=== PATIENT | female | born 1980 | race Caucasian/White ===

== ENCOUNTER → 2017-08-10 | Outpatient (CLI) | payer BC ==
[~2017-08-10] MED LIST: BETH25TA GT; DCS100C PO; IBP800T PO; OXYC1TAB12 PO
--- NOTE | 2017-08-10 21:07 | Diagnostic Imaging Report ---
INDICATION: Routine screening. COMPARISON: Prior mammogram from 11/26/2014 and right mammogram from 09/21/2015. EXAMINATION: Bilateral 3D digital tomographic views with breast implants were obtained with [employer] and reviewed on a [employer] workstation. In addition, CAD (computer aided detection) was utilized. FINDINGS: Bilateral sub-pectoral breast implants are noted. Implant contours appear to be fairly smooth. Scattered fibroglandular densities in both breasts are seen. Asymmetric density in the superior right breast on the MLO view appears less prominent on today's exam. No new abnormality is detected. IMPRESSION: BI-RADS category 2 Stable bilateral mammograms. No mammographic features suspicious for malignancy are identified. ACR BI-RADS Category 2: Benign findings. Result letter will be mailed to the patient. Note: At least 10% of breast cancer is not imaged by mammography. Dictated by: Dictated on workstation # [id number]
== END ==
LOC: RAD 11:02
PROVIDERS: ATTEND Obstetrics & Gynecology
DX: Z12.31 Encounter for screening mammogram for malignant neoplasm of breast (principal)
CPT/HCPCS: 77067

== ENCOUNTER → 2020-06-04 | Outpatient (CLI) | payer BC ==
--- NOTE | 2020-06-04 11:21 | Diagnostic Imaging Report ---
INDICATION: Routine screening. Comparison is made with prior mammogram 08/10/2017 and 11/26/2014. 2-D and 3-D bilateral screening mammography was performed with CAD. Bilateral subpectoral breast implants are again noted. Implant contours are smooth. Mild scattered fibroglandular densities in both breasts are noted. Parenchymal pattern is stable. No mass or malignant appearing microcalcifications are seen. Axillae are unremarkable. IMPRESSION: BI-RADS Category 1 No mammographic features suspicious for malignancy are identified. ACR BI-RADS Category 1: Negative. Result letter will be mailed to the patient. Note: At least 10% of breast cancer is not imaged by mammography. Dictated by: Dictated on workstation # [id number]
== END ==
LOC: RAD 10:15
PROVIDERS: ATTEND Obstetrics & Gynecology
DX: Z12.31 Encounter for screening mammogram for malignant neoplasm of breast (principal)
CPT/HCPCS: 77063; 77067

== ENCOUNTER 2020-10-19 01:34 | Emergency (ER) | payer BC ==
--- NOTE | 2020-10-19 01:42 | ED Fever ---
History of Present Illness General Stated Complaint: FEVEFR History of Present Illness Date Seen by Provider: Oct 19, 2020 Time Seen by Provider: 01:42 Initial Comments 40-year-old female presents with fever. Patient reports that the fever started on Monday afternoon on 10/17/2020. Patient reports that fever got as high as 103. That night she took some ibuprofen and was having difficulty for the fever to break. That she "passed out due to the fever and then the fever broke" that during the day on 10/18/2020 she felt better and did not have much fever. Then during the night it returned. Patient has had some headache, diarrhea, some pain in her back. She denies any cough, shortness of breath, sore throat. Allergies and Home Medications Allergies Coded Allergies: amoxicillin (Unverified Allergy, Unknown, RASH, 10/14/14) Home Medications Bethanechol Chl 25 Mg Tab, 25 MG GT QID Prescribed by: JEFFREY LANDIS on 10/25/14 1401 Docusate Sodium 100 Mg Cap, 100 MG PO BID Prescribed by: FANNY CHAMPION on 10/25/14 0957 Ibuprofen 800 Mg Tab, 800 MG PO Q6HR Prescribed by: FANNY CHAMPION on 10/25/14 0957 Oxycodone Hcl/Acetaminophen 1 Tab Tablet, 1-2 TAB PO Q4H PRN for PAIN Prescribed by: FANNY CHAMPION on 10/25/14 0957 Patient Home Medication List Home Medication List Reviewed: Yes Review of Systems Review of Systems Constitutional: No chills, No fever Respiratory: No cough, No short of breath Cardiovascular: No chest pain, No palpitations Gastrointestinal: No abdominal pain; diarrhea Musculoskeletal: back pain Skin: No rash Psychiatric/Neurological: Headache Hematologic/Lymphatic: No Symptoms Reported Immunological/Allergic: no symptoms reported Past Ogwbeei-Xpouwl-Mnhthl Hx Past Medical History Reproductive Disorders: Yes Family Medical History Cardiovascular disease 19 FATHER GRANDPARENTS Colon cancer GRANDPARENTS Diabetes mellitus 19 FATHER Hypertension 19 FATHER Thyroid disease 19 MOTHER No Family History of: AIDS Abdominal aortic aneurysm Alcoholism Alzheimer's disease Arthritis Asthma Cataracts Dementia Drug abuse Glaucoma Kidney disease Myocardial infarction Parkinson's disease Prostate cancer Psychosocial problem Respiratory disorder Seizure disorder Severe allergy Tuberculosis Physical Exam Vital Signs - First Documented 10/19/20 01:42 Temp 38.8 Pulse 129 Resp 18 B/P (MAP) 112/73 (86) Pulse Ox 96 O2 Delivery Room Air Capillary Refill : Height: 5'4.50" Weight: 144lbs. oz. 65.258216xw; BMI Method: General Appearance: no apparent distress, other (Febrile) Eyes: Bilateral Eye PERRL Neck: full range of motion, supple, other (No meningeal signs) Respiratory: lungs clear, normal breath sounds, no respiratory distress Cardiovascular: normal peripheral pulses, tachycardia Gastrointestinal: non tender, soft Extremities: normal capillary refill Neurologic/Psychiatric: alert, normal mood/affect, oriented x 3 Skin: normal color, warm/dry Focused Exam Lactate Level 10/19/20 01:50: Lactic Acid Level 0.77 Lactic Acid Level Laboratory Tests Test 10/19/20 01:50 Lactic Acid Level 0.77 MMOL/L (0.50-2.00) Progress/Results/Core Measures Suspected Sepsis SIRS Temperature: Pulse: Respiratory Rate: Laboratory Tests 10/19/20 01:50: White Blood Count 11.2H Blood Pressure / Mean: 10/19/20 01:50: Lactic Acid Level 0.77 Laboratory Tests 10/19/20 01:50: Creatinine 0.73, Platelet Count 222, Total Bilirubin 0.5 10/19/20 01:51: INR Comment 0.9 Results/Orders Lab Results Laboratory Tests Test 10/19/20 01:50 10/19/20 01:51 10/19/20 02:00 10/19/20 04:05 Range/Units White Blood Count 11.2 H 4.3-11.0 10^3/uL Red Blood Count 4.49 4.35-5.85 10^6/uL Hemoglobin 14.1 11.5-16.0 G/DL Hematocrit 41 35-52 % Mean Corpuscular Volume 92 80-99 FL Mean Corpuscular Hemoglobin 31 25-34 PG Mean Corpuscular Hemoglobin Concent 34 32-36 G/DL Red Cell Distribution Width 12.1 10.0-14.5 % Platelet Count 222 130-400 10^3/uL Mean Platelet Volume 11.1 H 7.4-10.4 FL Neutrophils (%) (Auto) 81 H 42-75 % Lymphocytes (%) (Auto) 10 L 12-44 % Monocytes (%) (Auto) 8 0-12 % Eosinophils (%) (Auto) 1 0-10 % Basophils (%) (Auto) 0 0-10 % Neutrophils # (Auto) 9.1 H 1.8-7.8 X 10^3 Lymphocytes # (Auto) 1.1 1.0-4.0 X 10^3 Monocytes # (Auto) 0.9 0.0-1.0 X 10^3 Eosinophils # (Auto) 0.1 0.0-0.3 10^3/uL Basophils # (Auto) 0.0 0.0-0.1 10^3/uL Sodium Level 138 135-145 MMOL/L Potassium Level 3.8 3.6-5.0 MMOL/L Chloride Level 107 98-107 MMOL/L Carbon Dioxide Level 21 21-32 MMOL/L Anion Gap 10 5-14 MMOL/L Blood Urea Nitrogen 10 7-18 MG/DL Creatinine 0.73 0.60-1.30 MG/DL Estimat Glomerular Filtration Rate > 60 BUN/Creatinine Ratio 14 Glucose Level 118 H 70-105 MG/DL Lactic Acid Level 0.77 0.50-2.00 MMOL/L Calcium Level 8.9 8.5-10.1 MG/DL Corrected Calcium 8.8 8.5-10.1 MG/DL Total Bilirubin 0.5 0.1-1.0 MG/DL Aspartate Amino Transf (AST/SGOT) 18 5-34 U/L Alanine Aminotransferase (ALT/SGPT) 18 0-55 U/L Alkaline Phosphatase 57 40-136 U/L C-Reactive Protein 3.05 H <0.50 MG/DL Total Protein 7.1 6.4-8.2 GM/DL Albumin 4.1 3.2-4.5 GM/DL Procalcitonin 0.07 <0.10 NG/ML Prothrombin Time 12.8 12.2-14.7 SEC INR Comment 0.9 0.8-1.4 Activated Partial Thromboplast Time 26 24-35 SEC Influenza Type A (RT-PCR) Not Detected Not Detecte Influenza Type B (RT-PCR) Not Detected Not Detecte SARS-CoV-2 RNA (RT-PCR) Not Detected Not Detecte Urine Color YELLOW Urine Clarity CLEAR Urine pH 6.0 5-9 Urine Specific [place] 1.015 L 1.016-1.022 Urine Protein NEGATIVE NEGATIVE Urine Glucose (UA) NEGATIVE NEGATIVE Urine Ketones NEGATIVE NEGATIVE Urine Nitrite NEGATIVE NEGATIVE Urine Bilirubin NEGATIVE NEGATIVE Urine Urobilinogen 0.2 < = 1.0 MG/DL Urine Leukocyte Esterase NEGATIVE NEGATIVE Urine RBC (Auto) NEGATIVE NEGATIVE Urine RBC NONE /HPF Urine WBC 2-5 /HPF Urine Squamous Epithelial Cells 2-5 /HPF Urine Crystals NONE /LPF Urine Bacteria FEW H /HPF Urine Casts PRESENT /LPF Urine Hyaline Casts 0-2 H /LPF Urine Coarse Granular Casts 0-2 H /LPF Urine Mucus MODERATE H /LPF Urine Culture Indicated NO Micro Results Microbiology 10/19/20 Influenza Types A,B Antigen (FITZ) - Final, Complete My Orders Orders - BAPTISTE,LETICIA L DO Cbc With Automated Diff (10/19/20 01:43) Comprehensive Metabolic Panel (10/19/20 01:43) Blood Culture (10/19/20 01:43) Urinalysis (10/19/20 01:43) Urine Culture (10/19/20 01:43) Protime With Inr (10/19/20 01:43) Partial Thromboplastin Time (10/19/20 01:43) Chest 1 View Ap/Pa Only (10/19/20 01:43) Ed Iv/Invasive Line Start (10/19/20 01:43) Vital Signs Adult Sepsis Patie Q15M (10/19/20 01:43) Ondansetron Injection (Zofran Injectio (10/19/20 01:45) Lactic Acid Analyzer (10/19/20 01:43) Influenza A And B Antigens (10/19/20 01:43) Ns Iv 1000 Ml (Sodium Chloride 0.9%) (10/19/20 01:45) Covid 19 Inhouse Test (10/19/20 01:43) Influenza A And B By Pcr (10/19/20 01:43) Crp Fs (10/19/20 01:54) Procalcitonin (Pct) (10/19/20 01:50) Vital Signs/I&O 10/19/20 10/19/20 01:42 05:21 Temp 38.8 Pulse 129 104 Resp 18 18 B/P (MAP) 112/73 (86) 108/69 (86) Pulse Ox 96 97 O2 Delivery Room Air Room Air Capillary Refill : Progress Note : Progress Note Patient with negative influenza, coronavirus, patient with negative UA and chest x-ray. Patient symptoms are very consistent with a other viral syndrome. Patient rested comfortably throughout her stay in the ER. Discussed with patient the need for supportive care. If her symptoms or not improved in 5 or 6 days she should follow with her primary care provider for further evaluation. Return the ER as Diagnostic Imaging Diagonstic Imaging: Xray Plain Films/CT/US/NM/MRI: chest Comments No infiltrate noted Reviewed: Reviewed by Me Departure Impression Primary Impression: Acute viral syndrome Disposition: HOME, SELF-CARE Condition: Stable Departure-Patient Inst. Referrals: NO,LOCAL PHYSICIAN (PCP/Family) Primary Care Physician Patient Instructions: Viral Syndrome (DC) Add. Discharge Instructions: Drink plenty of fluid Tylenol ibuprofen as needed for fever Follow-up with your primary care provider in 4 to 5 days if symptoms have not resolved LETICIA BAPTISTE DO Oct 19, 2020 01:42
[2020-10-19] MEDS ORDERED: NS IV 1000 ML 1,000 ML IV SCH (01:45)
[2020-10-19] MEDS ORDERED: ONDANSETRON 4 MG/2 ML (SDV) Z0FRAN IV PRN (01:45)
[2020-10-19 02:00] LABS: HEMATOCRIT 41 % (35-52); HEMOGLOBIN 14.1 G/DL (11.5-16.0); MEAN CORPUSCULAR HEMOGLOBIN 31 PG (25-34); MEAN CORPUSCULAR HGB CONC 34 G/DL (32-36); MEAN CORPUSCULAR VOLUME 92 FL (80-99); PLATELET COUNT 222 10^3/uL (130-400); WHITE BLOOD COUNT 11.2 10^3/uL (4.3-11.0)
[2020-10-19 02:01] LABS: BASOPHILS % (AUTO) 0 % (0-10); EOSINOPHILS # (AUTO) 0.1 10^3/uL (0.0-0.3); EOSINOPHILS % (AUTO) 1 % (0-10); LYMPHOCYTES # (AUTO) 1.1 X 10^3 (1.0-4.0); LYMPHOCYTES % (AUTO) 10 % (12-44); MEAN PLATELET VOLUME 11.1 FL (7.4-10.4); MONOCYTES # (AUTO) 0.9 X 10^3 (0.0-1.0); MONOCYTES % (AUTO) 8 % (0-12); NEUTROPHILS # (AUTO) 9.1 X 10^3 (1.8-7.8); NEUTROPHILS % (AUTO) 81 % (42-75)
[2020-10-19 02:22] LABS: ALANINE AMINOTRANSFERASE 18 U/L (0-55); ALBUMIN 4.1 GM/DL (3.2-4.5); ALKALINE PHOSPHATASE 57 U/L (40-136); BILIRUBIN,TOTAL 0.5 MG/DL (0.1-1.0); BUN/CREATININE RATIO 14; CALCIUM 8.9 MG/DL (8.5-10.1); CARBON DIOXIDE 21 MMOL/L (21-32); CHLORIDE 107 MMOL/L (98-107); CREATININE SERUM 0.73 MG/DL (0.60-1.30); GFR ESTIMATED > 60; GLUCOSE 118 MG/DL (70-105); POTASSIUM 3.8 MMOL/L (3.6-5.0); SODIUM 138 MMOL/L (135-145); TOTAL PROTEIN 7.1 GM/DL (6.4-8.2)
[2020-10-19 04:16] LABS: BILIRUBIN,URINE NEGATIVE (NEGATIVE); CLARITY,URINE CLEAR; COLOR,URINE YELLOW; GLUCOSE, URINE (UA) NEGATIVE (NEGATIVE); KETONES,URINE NEGATIVE (NEGATIVE); LEUKOCYTE ESTERASE ,URINE NEGATIVE (NEGATIVE); NITRITE,URINE NEGATIVE (NEGATIVE); PROTEIN,URINE NEGATIVE (NEGATIVE)
[2020-10-19 04:17] LABS: BACTERIA,URINE FEW /HPF; HYALINE CASTS, URINE 0-2 /LPF
[2020-10-19 05:21] VITALS: BP 108/69
[2020-10-19 05:21] LABS: INR 0.9 (0.8-1.4); PROTHROMBIN TIME PATIENT 12.8 SEC (12.2-14.7)
--- NOTE | 2020-10-19 06:12 | Diagnostic Imaging Report ---
INDICATION: Sepsis Portable AP view of the chest is obtained. COMPARISON: No previous study is available for comparison at this time. FINDINGS: Heart size and pulmonary vasculature are within normal limits, and the lungs are clear, bilaterally. IMPRESSION: Unremarkable chest. Dictated by: Dictated on workstation # [id number]
== END 2020-10-19 05:21 | disposition home or self-care (01) ==
LOC: EDUNIT# 01:34 → ER FS 01:36
DX: B34.9 Viral infection, unspecified (principal); Z20.822 Contact with and (suspected) exposure to COVID-19
CPT/HCPCS: 36415; 71045; 80053; 81000; 83605; 84145; 85025; 85610; 85730; 86141; 87040; 87088; 87636; 87804

== ENCOUNTER → 2021-06-01 | Outpatient (CLI) | payer OTHER ==
--- NOTE | 2021-06-01 09:26 | Diagnostic Imaging Report ---
INDICATION: Shoulder pain COMPARISON: None available TECHNIQUE: 3 radiographs of the left shoulder dated 06/01/2021 FINDINGS: The acromioclavicular joint is unremarkable. No acute fracture or dislocation. No destructive osseous process. Subacromial space is well-maintained. The visualized left lung is clear. IMPRESSION: Unremarkable examination without acute osseous abnormality. Dictated by: Dictated on workstation # [id number]
== END ==
LOC: RAD FS 08:36
PROVIDERS: ATTEND Nurse Practitioner
DX: M25.512 Pain in left shoulder (principal)
CPT/HCPCS: 73030

== ENCOUNTER → 2022-08-09 | Outpatient (CLI) | payer OTHER ==
--- NOTE | 2022-08-09 13:44 | Diagnostic Imaging Report ---
INDICATION: Routine screening. COMPARISON: 06/04/2020 and 08/10/2017. TECHNIQUE: 2D and 3D bilateral screening mammography was performed with CAD. FINDINGS: Bilateral subpectoral breast implants are again noted. The implant contours are smooth without evidence of extracapsular rupture. Both breasts are heterogeneously dense, limiting the sensitivity of mammography. The parenchymal pattern is stable. No mass or malignant-appearing microcalcifications are seen. The axillae are unremarkable. IMPRESSION: No mammographic features suspicious for malignancy are identified. ACR BI-RADS Category 2: Benign findings. Result letter will be mailed to the patient. Note: At least 10% of breast cancer is not imaged by mammography. Dictated by: Dictated on workstation # [id number]
== END ==
LOC: RAD 10:45
PROVIDERS: ATTEND Obstetrics & Gynecology
DX: Z12.31 Encounter for screening mammogram for malignant neoplasm of breast (principal)
CPT/HCPCS: 77063; 77067